=== PATIENT | female | born 1950 | race Caucasian/White ===

== ENCOUNTER → 2020-07-09 13:48 | Outpatient (CLI) | payer MEDICARE, BC, SELFPAY ==
--- NOTE | ~2020-07-09 | US_ITS ---
EXAMINATION: US thyroid DATE: 07/09/2020 14:10 INDICATION: Nontoxic single thyroid nodule TECHNIQUE: Multiple ultrasound images of the thyroid were obtained. COMPARISON: None. FINDINGS: The right thyroid lobe measures 4.2 x 1.6 x 1.4 cm. The left thyroid lobe measures 5.5 x 1.9 x 1.7 c m. No significant interval change in wider than tall solid isoechoic nodules with smooth margins and without echogenic foci (TI-RADS 3, mildly suspicious , FNA if >=2.5 cm, annual followup is >1.5 cm) measuring 2.6 cm at the lower pole of the left thyroid and 1 cm at the lower pole of the right thyroi d. IMPRESSION: 1. No interval change in a couple TI RADS 3 thyroid nodules, the larger 2.6 cm nodule in the left thy roid with biopsy one year prior demonstrating pathology consistent with benign follicular nodule . Reviewed, dictated and finalized at location B. IMPRESSION: 1. No interval change in a couple TI RADS 3 thyroid nodules, the larger 2.6 cm nodule in the left thyroid with biopsy one year prior demonstrating pathology consistent with benign follicular nodule .
== END ==
PROVIDERS: Visit Provider Internal Medicine Endocrinology, Diabetes & Metabolism
DX: E04.1 Nontoxic single thyroid nodule (principal)
CPT/HCPCS: 76536

== ENCOUNTER → 2022-01-27 12:06 | Outpatient (CLI) | payer MEDICARE, BC, SELFPAY ==
--- NOTE | ~2022-01-27 | US_ITS ---
EXAMINATION: US thyroid DATE: 01/27/2022 12:25 INDICATION: Thyroid nodule. TECHNIQUE: Multiple ultrasound images of the thyroid were obtained. COMPARISON: Ultrasound 07/09/2020, 06/24/2019 FINDINGS: The right thyroid lobe measures 4.6 x 1.8 x 1.5 cm. The left thyroid lobe measures 5.8 x 2.1 x 1.6 c m. In the right thyroid lobe, there is a 1.3 cm solid, isoechoic, [id number] nodule with ill-de fined margin without echogenic foci (TI-RADS TR3). In the left thyroid lobe, there is a 2.5 cm solid, hypoechoic, [id number] nodule with ill-defined margin without echogenic foci (TR4), stable from 07/04/2019 when biopsy was benign. IMPRESSION: 1. Thyroid nodules, likely not clinically significant. No follow-up is needed. Reviewed, dictated and finalized at location A.
== END ==
PROVIDERS: PCP Internal Medicine; Visit Provider Internal Medicine Endocrinology, Diabetes & Metabolism
DX: E04.2 Nontoxic multinodular goiter (principal)
CPT/HCPCS: 76536